=== PATIENT | female | born 1940 | race Caucasian/White ===

== ENCOUNTER 2019-11-10 16:11 | Outpatient (CLI) | payer MEDICARE, SELFPAY ==
[2019-11-10 16:36] LABS: Add Urine Microscopic? YES; Appearance Urine Clear (Clear); Bacteria Urine Trace /hpf; Bilirubin Urine Negative (Negative); Blood Urine 1+ (Negative); Color Urine Straw (Yellow); Glucose Urine UA Negative (Negative); Ketones Urine Negative (Negative); Leukocyte Esterase Ur 2+ LEU/UL (NEGATIVE); Mucus Urine Rare /lpf; Nitrate Urine Positive (Negative); Protein Urine Negative (Negative); RBC Urine 0-2 /hpf (0-2); Specific Grav Ur 1.009 (1.001-1.035); Squamous Epithelial Cell Urine Occasional /hpf (Few); Urobilinogen Urine Negative mg/dL (<2.0)
== END 2019-11-10 16:12 | disposition home or self-care (01) ==
PROVIDERS: PCP Physician Assistant; Visit Provider Physician Assistant
DX: R30.0 Dysuria (principal)
CPT/HCPCS: 81001; 87077; 87086; 87088; 87186

== ENCOUNTER 2020-01-14 09:48 | Outpatient (CLI) | payer MEDICARE, SELFPAY ==
--- NOTE | ~2020-01-14 | XR_ITS ---
XR lumbar spine 6V w bending 01/14/2020 10:18 Indication: Chronic low back pain Procedure: 8 views of the lumbar spine with flexion/extension Comparison: 01/28/2013 Findings: There is disc narrowing at all lumbar levels with progression of since prior examination at L2-3. There is retrolisthesis at L3-4 and L4-5. No acute fracture or traumatic malalignment. No evid ence for anterolisthesis. No significant alteration of alignment with flexion/extension. There is dex troscoliosis centered at L3 Impression: 1: Persistent moderate-severe lumbar spondylosis with progression at L2-3. If radiculopathy or myelop athy is present, further evaluation with MRI is recommended. Reviewed, dictated and finalized at location A. Impression: 1: Persistent moderate-severe lumbar spondylosis with progression at L2-3. If r adiculopathy or myelopathy is present, further evaluation with MRI is recommend ed.
== END 2020-01-14 09:49 | disposition home or self-care (01) ==
LOC: ANHIMG 09:51
PROVIDERS: PCP Physician Assistant; Visit Provider Physician Assistant
DX: M47.896 Other spondylosis, lumbar region (principal)
CPT/HCPCS: 72114

== ENCOUNTER 2020-03-03 16:49 | Emergency (ER) | payer MEDICARE, SELFPAY ==
--- NOTE | ~2020-03-03 | CT_ITS ---
EXAMINATION: CT abdomen pelvis wo con DATE: 03/03/2020 19:42 INDICATION: Abdominal pain. History of stones and recurrent urinary tract infections TECHNIQUE: Computed tomography (CT) of the abdomen and pelvis was performed without intravenous contr ast. Automated exposure control and iterative reconstruction technique were employed. Exam dose: 794 .16 mGy-cm total exam DLP. COMPARISON: 04/11/2019 CTA chest abdomen pelvis FINDINGS: There is mild discoid atelectasis or scarring in both lower lung zones. No consolidation. Coronary artery calcifications. Borderline heart size. No pericardial or pleural effusion. There is a small sliding hiatal hernia. There are numerous calcified splenic granulomas and occasional calcified hepatic granulomas. Normal s plenic size. No hepatic space-occupying mass lesion is evident. The gallbladder is absent. No bile duct or pancreatic duct dilatation. No pancreatic mass lesion. A s olitary pinpoint pancreatic head calcification is noted, which may indicate mild chronic pancreatitis . Normal morphology of the adrenal glands. Approximately 3 mm nonobstructing upper pole right renal calculus. No ureteral calculus or hydrourete ronephrosis. No apparent renal space-occupying mass lesion is detected. Normal caliber of the abdominal aorta. There is prominent calcification at the origins of the celiac and superior mesenteric and particularly both renal arteries. No abdominal aortic aneurysm. No intrap eritoneal or retroperitoneal or pelvic mass lesion or adenopathy or ascites. Status post hysterectomy. The urinary bladder is unremarkable. There is diverticulosis of the sigmoid and descending colon; no CT evidence of diverticulitis. No bow el obstruction is evident. There is a short segment area of soft tissue thickening and luminal narrowing of undetermined signifi cance at the very proximal descending colon; barium enema or colonoscopy is recommended to exclude ad enocarcinoma of the colon. There is reversal of lumbar lordosis. There is severe degenerative disc disease at L2-3, L3-4, L4-5 and L5-S1. There is associated mild ret rolisthesis at L4-5. Bilateral hip osteoarthritis. IMPRESSION: Small sliding hiatal hernia Approximately 3 mm nonobstructing lower pole right renal calculus Extensive atherosclerosis Status post hysterectomy Diverticulosis of sigmoid colon and descending colon Short segment possible soft tissue wall thickening and luminal narrowing of proximal descending colon ; recommend barium enema or colonoscopy to exclude adenocarcinoma the colon Reviewed, dictated and finalized at [facility]. Reviewed, dictated and finalized at location A. APPRAISER IMPRESSION: Small sliding hiatal hernia Approximately 3 mm nonobstructing lower pole right renal calculus Extensive atherosclerosis Status post hysterectomy Diverticulosis of sigmoid colon and descending colon Short segment possible soft tissue wall thickening and luminal narrowing of pro ximal descending colon; recommend barium enema or colonoscopy to exclude adenoc arcinoma the colon
[2020-03-03 18:04] VITALS: BP 139/90; PULSE 84; RESP 16; TEMP 36.3; O2SAT 98
[2020-03-03 18:23] LABS: Add Urine Microscopic? YES; Appearance Urine Clear (Clear); Bilirubin Urine Negative (Negative); Blood Urine 1+ (Negative); Color Urine Yellow (Yellow); Glucose Urine UA Negative (Negative); Ketones Urine Negative (Negative); Leukocyte Esterase Ur 2+ LEU/UL (Negative); Mucus Urine Rare /lpf; Nitrate Urine Negative (Negative); Protein Urine Negative (Negative); RBC Urine 0-2 /hpf (0-2); Specific Grav Ur 1.029 (1.001-1.035); Squamous Epithelial Cell Urine Few /hpf (Few); Urobilinogen Urine Negative mg/dL (<2.0)
[2020-03-03 20:03] LABS: Basophils Absolute Auto 0.1 K/mm3 (0.0-0.1); Basophils Percent Auto 0.9 % (0.2-1.2); Eosinophils Absolute Auto 0.2 K/mm3 (0-0.3); Eosinophils Percent Auto 3.1 % (0-4.4); Hematocrit 39.8 % (37.0-47.0); Hemoglobin 12.9 g/dL (12.0-15.0); Immature Granulocyte Absolute 0.01 K/mm3 (0.00-0.031); Immature Granulocyte Percent A 0.2 % (0-0.5); Lymphocytes Absolute Auto 1.43 K/mm3 (0.9-3.2); Lymphocytes Percent Auto 26.4 % (18.3-44.2); Mean Corpuscular HGB Conc 32.4 g/dl (32-36); Mean Corpuscular Hemoglobin 33.4 pg (26-34); Mean Corpuscular Volume 103.1 fl (80-100); Mean Platelet Volume 9.4 fl (7.4-10.4); Monocytes Absolute Auto 0.7 K/mm3 (0.1-0.6); Monocytes Percent Auto 12.8 % (2.6-8.5); Neutrophils Absolute Auto 3.1 K/mm3 (1.3-6.7); Neutrophils Percent Auto 56.6 % (45.5-73.1); Platelet Count Result 223 k/mm3 (150-375); Red Blood Count 3.86 M/mm3 (4.2-5.4); Red Cell Distribution Width 13.5 % (11.5-14.5); White Blood Count 5.4 K/mm3 (4.5-10.0)
[2020-03-03 20:26] LABS: Lactic Acid Reflex 0.9 mmol/L (0.7-2.1)
--- NOTE | 2020-03-03 20:27 | ED.GENADULT ---
HPI - General Adult General Chief complaint: Urogenital-Female Stated complaint: urgency to void, hematuria, itching Time Seen by Provider: 03/03/20 18:31 History of Present Illness HPI narrative: Patient is a 79-year-old female who presents to emergency department with chief complaint of abdominal pain and dysuria. Patient reports that she was recently treated for urinary tract infection Is still having symptoms. Patient states that she has prior history of UTIs that have been resistant but states that she is not getting better patient reports that she currently finished a course of antibiotics and still has dysuria she is reporting some perineal area Related Data Home Medications Medication Instructions Recorded Confirmed amlodipine 5 mg tablet 5 mg PO DAILY 02/20/19 01/18/20 aspirin 81 mg tablet,delayed 81 mg PO DAILY 02/27/19 01/18/20 release atorvastatin 10 mg tablet 10 mg PO DAILY 02/27/19 01/18/20 carvedilol 25 mg tablet 25 mg PO Q12H 02/27/19 01/18/20 losartan 100 mg tablet 100 mg PO DAILY tablet 02/27/19 01/18/20 Allergies Allergy/AdvReac Type Severity Reaction Status Date / Time codeine Allergy Severe CHEST PAIN Verified 03/03/20 18:09 Sulfa (Sulfonamide Allergy Severe UPSET Verified 03/03/20 18:09 Antibiotics) STOMACH JAYDEN Inhibitors Allergy Unknown Cough Verified 03/03/20 18:09 ciprofloxacin Allergy Unknown Unknown Verified 03/03/20 18:09 Review of Systems Review of Systems: Narrative: CONSTITUTIONAL: Denies fever, chills, or sweats. EYES: Denies visual changes, redness, or discharge. ENT: Denies rhinorrhea, congestion, sore throat, or otalgia. CARDIOVASCULAR: Denies chest pain, palpitations, or edema. RESPIRATORY: Denies cough or dyspnea. GASTROINTESTINAL: Denies abdominal pain, nausea, vomiting, or diarrhea. GENITOURINARY: Denies dysuria or hematuria. SKIN: Denies rash or itching. MUSCULOSKELETAL: Denies back pain, joint pain, or myalgia. NEUROLOGIC: Denies headache, numbness, or weakness. PSYCHIATRIC: Denies anxiety or depression. All systems reviewed & are unremarkable except as noted in HPI and below PMFSH Past Medical History Medical History (Updated 03/03/20 @ 20:55 by Julio Pretty MD) Afib Intermittent. Rate controlled. Had been on Coumadin. But now on Lovenox systolic Anxiety CHF (congestive heart failure), NYHA class I CKD (chronic kidney disease) Coronary artery disease Depression GERD (gastroesophageal reflux disease) HTN (hypertension) Hyperlipidemia Hypothyroid Kidney stones Surgical History Surgical History H/O cardiac catheterization 3 stents History of appendectomy History of bilateral tubal ligation History of cholecystectomy History of heart artery stent 3 History of hysterectomy Family History Family History Father Family history of cardiovascular disease CABG Carcinoma of colon Mother Family history of malignant neoplasm Aplastic anemia Other Family history of anemia Family history of arthritis Hypertension Social History Social History Smoking status: Never smoker Second hand tobacco smoke exposure: No Alcohol intake: never Substance use: never Substance use type: does not use Gender identity (if verbalized by the patient): Female Spiritual care concerns: No Agree to blood products: Yes Exam Narrative: Exam Narrative: GENERAL: Well-appearing, well-nourished, and in no acute distress. HEAD: Normocephalic, atraumatic. EYES: PERRLA and EOMI. ENT: Nares clear, no rhinorrhea or epistaxis. Mucous membranes moist. NECK: Supple. CHEST: Clear to auscultation. No respiratory distress. HEART: Regular rate and rhythm. No murmur heard. Normal peripheral pulses. ABDOMEN: Soft, nontender, nondistended, normal active bowel sounds. EXT
[2020-03-03 20:47] LABS: Alanine Aminotransferase 20 U/L (4-35); Albumin Level 3.8 g/dL (3.5-5.1); Alkaline Phosphatase 114 U/L (38-126); Anion Gap 7 mmol/L (8-16); Aspartate Amino Transferase 31 U/L (14-36); Bilirubin,Total 0.7 mg/dL (0.2-1.3); Blood Urea Nitrogen 16 mg/dL (7-17); Calcium 8.6 mg/dL (8.4-10.2); Carbon Dioxide 28 mmol/L (22-30); Chloride 105 mmol/L (98-107); Estimated CRCL calculation 44 ml/min; Estimated Glomerular Filt Rate 54; Glucose 100 mg/dL (65-105); Lipase 112 U/L (23-300); Sodium 140 mmol/L (137-145)
[2020-03-03] MEDS: AMOXICILLIN/CLAVULANATE K 875-125 MG TAB 1 TABLET PO (21:05)
[2020-03-03] MEDS: PHENAZOPYRIDINE HCL 100 MG TABLET 200 MG PO (21:05)
== END 2020-03-03 21:16 | disposition home or self-care (01) ==
PROVIDERS: Emergency Medicine; Emergency Provider Emergency Medicine; PCP Physician Assistant
DX: N39.0 Urinary tract infection, site not specified (principal); I48.91 Unspecified atrial fibrillation; I50.9 Heart failure, unspecified; I12.9 Hypertensive chronic kidney disease with stage 1 through stage 4 chronic kidney disease, or unspecified chronic kidney disease; N18.9 Chronic kidney disease, unspecified; K21.9 Gastro-esophageal reflux disease without esophagitis; E03.9 Hypothyroidism, unspecified; Z87.442 Personal history of urinary calculi; Z95.5 Presence of coronary angioplasty implant and graft; Z79.82 Long term (current) use of aspirin; Z79.02 Long term (current) use of antithrombotics/antiplatelets
CPT/HCPCS: 36415; 74176; 80053; 81001; 83605; 83690; 85025; 87086; 99284; A9270

== ENCOUNTER 2020-08-17 18:07 | Observation (INO) | payer MEDICARE, SELFPAY ==
--- NOTE | ~2020-08-17 | XR_ITS ---
EXAMINATION: XR chest 1V portable EXAM DATE: 08/18/2020 08:55 INDICATION: Chest pain . TECHNIQUE: Portable AP frontal chest x-ray was obtained. Comparison is made to prior examination from 04/12/2019. FINDINGS: The lungs are clear. There are no pleural effusions. Cardiac silhouette is prominent but magnified on this AP technique. There is no pneumothorax suspected. The bones and soft tissues are unremarkable. IMPRESSION: No acute cardiopulmonary findings. Reviewed, dictated and finalized at location A.
--- NOTE | ~2020-08-17 | CT_ITS ---
EXAMINATION: CT abdomen pelvis w con DATE: 08/18/2020 00:27 INDICATION: Abdominal pain. TECHNIQUE: Computed tomography (CT) of the abdomen and pelvis was performed with 100 mL Omnipaque 350 intravenous contrast. Automated exposure control and iterative reconstruction technique were employe d. The dose-length product was 1080.96 mGy-cm. COMPARISON: CT abdomen and pelvis 03/03/2020 FINDINGS: The visualized portions of the lung bases demonstrate mild atelectasis. No pleural effusion . Cardiomegaly is noted. There are coronary artery calcifications. No pericardial effusion. Calcifica tions in the liver and spleen are consistent with old granulomatous disease. The pancreas and adrenal glands are normal. There is cortical thinning of the kidneys. There is a 2 mm stone in right kidney. There are cysts in the kidneys measuring up to 11 mm on the left. There is diverticulosis of the col on without evidence of diverticulitis. The appendix is not visualized. There are no pathologically en larged lymph nodes. There is no free intraperitoneal fluid. There are old healed fractures of left wolfe perior and inferior pubic rami. There is an intrathecal pump. There is severe lumbar spondylosis. IMPRESSION: 1. No specific etiology for the patient's symptoms. Reviewed, dictated and finalized at location A.
--- NOTE | ~2020-08-17 | US_ITS ---
EXAMINATION: US pelvic complete DATE: 08/19/2020 11:44 INDICATION: Pelvic pain. TECHNIQUE: Multiple transabdominal sonographic images of the pelvis were obtained. COMPARISON: CT abdomen and pelvis 08/18/2020 FINDINGS: The uterus and ovaries are absent. The bladder is normal. IMPRESSION: 1. Normal bladder. 2. Absent uterus and ovaries. Reviewed, dictated and finalized at location A.
[2020-08-17 19:06] VITALS: BP 115/62; PULSE 60; RESP 16; TEMP 36.1; O2SAT 96
--- NOTE | 2020-08-17 19:10 | ECG_ITS ---
Measurements Intervals [place] Rate: 90 P: [place]: 0 QRS: 54 QRSD: 96 T: -15 QT: 375 QTc: 460 Interpretive Statements ATRIAL FIBRILLATION INCOMPLETE RIGHT BUNDLE BRANCH BLOCK NONSPECIFIC ST & T-WAVE ABNORMALITY- ANTEROLAT/INF LEADS ABNORMAL ECG Electronically Signed On 08-18-2020 7:10:01 CDT by Bakari Gonzalez D.O.
[2020-08-17 19:29] LABS: Basophils Absolute Auto 0.1 K/mm3 (0.0-0.1); Basophils Percent Auto 0.9 % (0.2-1.2); Eosinophils Absolute Auto 0.1 K/mm3 (0-0.3); Eosinophils Percent Auto 1.1 % (0-4.4); Hematocrit 40.6 % (37.0-47.0); Hemoglobin 13.4 g/dL (12.0-15.0); Immature Granulocyte Absolute 0.01 K/mm3 (0.00-0.031); Immature Granulocyte Percent A 0.2 % (0-0.5); Lymphocytes Absolute Auto 1.34 K/mm3 (0.9-3.2); Lymphocytes Percent Auto 25.4 % (18.3-44.2); Mean Corpuscular Hemoglobin 33.5 pg (26-34); Mean Corpuscular Volume 101.5 fl (80-100); Mean Platelet Volume 9.9 fl (7.4-10.4); Monocytes Absolute Auto 0.5 K/mm3 (0.1-0.6); Monocytes Percent Auto 8.9 % (2.6-8.5); Neutrophils Absolute Auto 3.4 K/mm3 (1.3-6.7); Neutrophils Percent Auto 63.5 % (45.5-73.1); Platelet Count Result 242 k/mm3 (150-375); Red Cell Distribution Width 12.7 % (11.5-14.5); White Blood Count 5.3 K/mm3 (4.5-10.0)
[2020-08-17 19:41] LABS: Alanine Aminotransferase 11 U/L (4-35); Alkaline Phosphatase 100 U/L (38-126); Anion Gap 5 mmol/L (8-16); Aspartate Amino Transferase 26 U/L (14-36); Bilirubin,Total 0.4 mg/dL (0.2-1.3); Blood Urea Nitrogen 13 mg/dL (7-17); Calcium 8.7 mg/dL (8.4-10.2); Carbon Dioxide 27 mmol/L (22-30); Chloride 105 mmol/L (98-107); Estimated CRCL calculation 54 ml/min; Estimated Glomerular Filt Rate > 60; Glucose 161 mg/dL (65-105); Lipase 111 U/L (23-300); Sodium 137 mmol/L (137-145)
--- NOTE | 2020-08-17 22:46 | ED.ABDPAIN ---
HPI - Abdominal Pain General Chief Complaint: Abdominal Pain Stated Complaint: urinary symptoms, abd pain Time Seen by Provider: 08/17/20 22:40 Source: patient and RN notes reviewed Mode of arrival: ambulatory Limitations: no limitations History of Present Illness HPI narrative: Patient is 80 years old white female came from home with her daughter complaining of diffuse abdominal pain for the last 2 months. Recurrent urinary tract infection for at least 4 times over the last 6 months, last course of antibiotic intake was 5 days ago. Or urinary Currently patient complaining of nausea, no vomiting, also complaining of diarrhea for the last 2 days, today was watery stool at least 7 episodes. Patient was seen in the last few days at [facility] and was discharged on nitrofurantoin, morphine and Zofran patient was seen by A urologist 1 month ago. Related Data Home Medications Medication Instructions Recorded Confirmed amlodipine 5 mg tablet 5 mg PO DAILY 02/20/19 05/20/20 aspirin 81 mg tablet,delayed 81 mg PO DAILY 02/27/19 05/20/20 release atorvastatin 10 mg tablet 10 mg PO DAILY 02/27/19 05/20/20 carvedilol 25 mg tablet 25 mg PO Q12H 02/27/19 05/20/20 Allergies Allergy/AdvReac Type Severity Reaction Status Date / Time codeine Allergy Severe CHEST PAIN Verified 05/20/20 08:56 Sulfa (Sulfonamide Allergy Severe UPSET Verified 05/20/20 08:56 Antibiotics) STOMACH JAYDEN Inhibitors Allergy Unknown Cough Verified 05/20/20 08:56 ciprofloxacin Allergy Unknown Unknown Verified 05/20/20 08:56 Review of Systems Review of Systems: Narrative: CONSTITUTIONAL: Denies fever, chills, or sweats. EYES: Denies visual changes, redness, or discharge. ENT: Denies rhinorrhea, congestion, sore throat, or otalgia. CARDIOVASCULAR: Denies chest pain, palpitations, or edema. RESPIRATORY: Denies cough or dyspnea. GASTROINTESTINAL: Abdominal pain, nausea and diarrhea GENITOURINARY: Denies dysuria or hematuria. SKIN: Denies rash or itching. MUSCULOSKELETAL: Denies back pain, joint pain, or myalgia. NEUROLOGIC: Denies headache, numbness, or weakness. PSYCHIATRIC: Denies anxiety or depression. [facility] Past Medical History Medical History Afib Intermittent. Rate controlled. Had been on Coumadin. But now on Lovenox systolic Anxiety CHF (congestive heart failure), NYHA class I CKD (chronic kidney disease) Coronary artery disease Depression GERD (gastroesophageal reflux disease) HTN (hypertension) Hyperlipidemia Hypothyroid Kidney stones Surgical History Surgical History H/O cardiac catheterization 3 stents History of appendectomy History of bilateral tubal ligation History of cholecystectomy History of heart artery stent 3 History of hysterectomy Family History Family History Father Family history of cardiovascular disease CABG Carcinoma of colon Mother Family history of malignant neoplasm Aplastic anemia Other Family history of anemia Family history of arthritis Hypertension Social History Social History Smoking status: Never smoker Second hand tobacco smoke exposure: No Alcohol intake: never Substance use: never Substance use type: does not use Gender identity (if verbalized by the patient): Female Spiritual care concerns: No Agree to blood products: Yes Exam Narrative: Exam Narrative: General appearance: Well-developed, well-nourished, ill looking, daughter at the bedside Skin: Normal color Head: Normocephalic, nontraumatic Eyes: Clear conjunctiva ENT: Oropharynx normal, ears normal, nose normal Neck: Supple, nontender Chest and respiratory: Airway patent, no respiratory distress, no accessory muscle use Heart: Regular rate/rhythm Abdomen: Soft, diffuse tenderness, hyperact
--- NOTE | 2020-08-17 23:19 | ED.ABDPAIN ---
HPI - Abdominal Pain General Chief Complaint: Abdominal Pain Stated Complaint: urinary symptoms, abd pain Time Seen by Provider: 08/17/20 22:40 Source: patient and RN notes reviewed Mode of arrival: ambulatory Limitations: no limitations History of Present Illness HPI narrative: Patient is a 80-year-old female complaining of abdominal pain, generalized, 6 out of 10, dull, nonradiating started approximately 2 weeks ago accompanied by diarrhea described as loose watery. Patient states that she has been on 3 rounds of antibiotics due to her urinary tract infection. Patient also complaining of chest pain, tightness, substernal radiating also started proximately 2 weeks ago. Patient denies any shortness of breath, nausea, vomiting, fever or chills. Related Data Home Medications Medication Instructions Recorded Confirmed amlodipine 5 mg tablet 5 mg PO DAILY 02/20/19 05/20/20 aspirin 81 mg tablet,delayed 81 mg PO DAILY 02/27/19 05/20/20 release atorvastatin 10 mg tablet 10 mg PO DAILY 02/27/19 05/20/20 carvedilol 25 mg tablet 25 mg PO Q12H 02/27/19 05/20/20 Allergies Allergy/AdvReac Type Severity Reaction Status Date / Time codeine Allergy Severe CHEST PAIN Verified 05/20/20 08:56 Sulfa (Sulfonamide Allergy Severe UPSET Verified 05/20/20 08:56 Antibiotics) STOMACH JAYDEN Inhibitors Allergy Unknown Cough Verified 05/20/20 08:56 ciprofloxacin Allergy Unknown Unknown Verified 05/20/20 08:56 Review of Systems Review of Systems: All systems reviewed & are unremarkable except as noted in HPI and below Constitutional: Constitutional: Denies body ache(s), Denies chills, Denies excessive sweating, Denies fatigue, Denies fever(s), Denies headache(s), Denies lethargy, Denies malaise, Denies weakness and Denies weight loss Eyes: Eyes: Denies blurry vision, Denies change in vision and Denies loss of vision ENT: Denies dizziness, Denies ear discharge, Denies headache(s), Denies lip swelling, Denies epistaxis, Denies nasal congestion, Denies neck pain, Denies throat swelling and Denies tongue swelling Cardiovascular: Cardiovascular: Denies diaphoresis, Denies rapid heart rate, Denies edema, Denies irregular heart rhythm, Denies lightheadedness, Denies palpitations, Denies dyspnea and Denies dyspnea on exertion Respiratory: Respiratory: Denies chest congestion, Denies cough, Denies hemoptysis, Denies dyspnea and Denies dyspnea on exertion Gastrointestinal: Gastrointestinal: Denies melena, Denies hematochezia, Denies nausea, Denies vomiting and Denies hematemesis Musculoskeletal: Musculoskeletal: Denies abnormal gait, Denies deformity, Denies joint swelling, Denies limited range of motion, Denies neck pain and Denies numbness Neurologic: Denies Abnormal speech present, Denies abnormal gait, Denies confusion, Denies dizziness, Denies headache(s), Denies focal weakness, Denies loss of vision, Denies numbness, Denies Other visual disturbances, Denies Sensory deficit (Neuro) and Denies weakness Psychiatric: Psychiatric: Denies confusion, Denies depression, Denies auditory hallucinations, Denies homicidal ideation and Denies suicidal ideation Endocrine: Endocrine: Denies cold intolerance, Denies excessive sweating, Denies fatigue, Denies heat intolerance and Denies palpitations Hematologic/Lymphatic: Hematologic/Lymphatic: Denies easy bleeding and Denies easy bruising Allergic/Immunologic: Allergic/Immunologic: Denies lip swelling, Denies throat swelling and Denies tongue swelling PMFSH Past Medical History Medical History Afib Intermittent. Rate controlled. Had been on Coumadin. But now on Lovenox systolic Anxiety CHF (congestive heart failure), NYHA class I CKD (chronic kidney disease) Coronary artery disease Depression GERD (gastroesophageal reflux disease) HTN (hypertension) Hyperlipidemia Hypothyroid Kidney stones Surgical History Surgical History (Reviewed 08/17/20 @ 23:22 by
[2020-08-17 23:35] VITALS: PULSE 80; RESP 9; O2SAT 96
--- NOTE | 2020-08-17 23:41 | PC.NURSE ---
Pt c/o pain in lower abd that is burning in nature. pt reports diarrhea x 2 days, 6 episodes of watery stool today. last meal ate pizza today with no improvement. hx of perforated abd ulcer per pt report 2 years ago without follow up. pain 01/29.
[2020-08-17 23:45] VITALS: PULSE 81; RESP 12; O2SAT 99
[2020-08-17 23:47] VITALS: PULSE 83; RESP 20; O2SAT 98
[2020-08-18] VITALS (34 sets, daily range): BP systolic 132–185; BP diastolic 62–93; PULSE 63–87; RESP 9–22; TEMP 35.8–36.4; O2SAT 83–100; BMI 29.2
--- NOTE | 2020-08-18 | ECHO_ITS ---
Patient Info Name: So Jenkins Age: 80 years : 1940 Gender: Female Ht: 66 in Wt: 180 lbs BSA: 1.97 m2 HR: 79 bpm BP: 185 / 91 mmHg Heart Rhythm: Atrial Fibrillation Technical Quality: Fair Exam Date: 08/18/2020 10:26 AM Exam Location: [facility] Card Pulmonary Patient Status: Inpatient Admit Date: 08/18/2020 Staff Ordering Physician: Samantha England NP Medical Leader: Montse Marte RDCS Attending Provider: Carol Ann Monaco MD Referring Physician: Tomás LIN; Exam Type: CA echo dop color flow w con Study Info Indications R07.9 - Chest pain, unspecified Complete two-dimensional, color flow and Doppler transthoracic echocardiogram is performed with contrast to opacify the left ventricle and to improve the deliniation of the left ventricle endocardial borders. Contrast/Agitated Saline Contrast/Ag. Saline: Definity Amount: 2.00 ml Administered By: Estela Bee RN Existing IV Access: Yes IV Access Condition: patent with no signs of infiltration Summary 1. Technically difficult study with limited views. No clear wall motion abnormalities identified, however, regional wall motion assessment limited despite definity contrast enhancement. 2. Left ventricular systolic function is normal, estimated at 55-60%. 3. Left ventricular chamber dimension is normal. 4. Left atrial chamber dimension is mildly enlarged. 5. Right atrial chamber dimension is mildly enlarged. 6. There is no aortic valve stenosis. 7. There is trace mitral valve regurgitation. 8. There is mild tricuspid valve regurgitation. 9. Moderate pulmonary hypertension, estimated pulmonary arterial systolic pressure is 53 mmHg. Left Ventricle Left ventricular chamber dimension is normal. Left ventricular systolic function is normal, estimated at 55-60%. There is no increased left ventricular wall thickness. The left ventricular diastolic function is indeterminate. Technically difficult study with limited views. No clear wall motion abnormalities identified, however, regional wall motion assessment limited despite definity contrast enhancement. Right Ventricle Right ventricular chamber dimension is not well visualized. Right ventricular systolic function is normal. Left Atria Left atrial chamber dimension is mildly enlarged. Right Atria Right atrial chamber dimension is mildly enlarged. Aortic Valve The aortic valve is trileaflet. There is no aortic valve stenosis. There is no aortic valve regurgitation. Pulmonic Valve The pulmonic valve is normal. There is trace pulmonic regurgitation. Mitral Valve The mitral valve has normal leaflets. There is trace mitral valve regurgitation. Tricuspid Valve The tricuspid valve leaflets are normal. There is mild tricuspid valve regurgitation. Moderate pulmonary hypertension, estimated pulmonary arterial systolic pressure is 53 mmHg. Pericardium/Pleural The pericardium appears epicardial fat pad. Inferior Vena Cava Inferior vena cava is not well visualized. Aorta The aortic root size at the sinus of Valsalva is normal. Left Ventricular Outflow Tract Name Value Normal LVOT 2D LVOT Diameter 1.91 cm
[2020-08-18] MEDS: SODIUM CHLORIDE 0.9% IV 1,000 ML 999 ML IV CONT (00:01)
[2020-08-18] MEDS: MORPHINE SULFATE (*CRX) 4 MG/ML INJ IV PUSH (00:01)
[2020-08-18] MEDS: ONDANSETRON INJ 4 MG/2 ML VIAL IV PUSH (00:02)
[2020-08-18 01:58] LABS: Add Urine Microscopic? YES; Appearance Urine Clear (Clear); Bilirubin Urine Negative (Negative); Blood Urine 1+ (Negative); Color Urine Straw (Yellow); Glucose Urine UA Negative (Negative); Ketones Urine Negative (Negative); Leukocyte Esterase Ur Negative LEU/UL (Negative); Nitrate Urine Negative (Negative); Protein Urine Negative (Negative); RBC Urine 0-2 /hpf (0-2); Squamous Epithelial Cell Urine Rare /hpf (Few); Urobilinogen Urine Negative mg/dL (<2.0); WBC Urine 0-3 /hpf
[2020-08-18 02:02] LABS: Specific Grav Ur 1.038 (1.001-1.035)
[2020-08-18 02:24] LABS: Troponin I < 0.012 ng/mL (0.000-0.034)
[2020-08-18] MEDS: ASPIRIN 81 MG CHEWABLE TABLET 324 MG PO (03:15)
[2020-08-18] MEDS: MORPHINE SULFATE (*CRX) 2 MG/ML INJ IV PUSH (03:15)
--- NOTE | 2020-08-18 04:35 | ADMGEN ---
This patient, So Jenkins, was admitted to IMU Room 206-01. Patient/family oriented to hospital policies and general routines including ID bracelet, bed and alarms, visiting hours, pain management, procedures, bathroom and other care routines, personal items, smoking policy, room service/diet, and visiting hours. Information on how to activate the Rapid Response Team has been discussed. Patient/Family are encouraged to report perceived risks to care and to ask questions if they do not understand what they are told or what they should do.
[2020-08-18] MEDS: LACTATED RINGERS 1,000 ML 90 ML IV CONT (05:34)
[2020-08-18 05:48] LABS: INR 1.6; Prothrombin Time 19.6 Seconds (11.1-14.7)
[2020-08-18 05:54] LABS: Troponin I < 0.012 ng/mL (0.000-0.034)
--- NOTE | 2020-08-18 06:37 | PM.IMHP ---
H&P: HPI History of Present Illness Date/Time: 08/18/20 06:37 this is a 80-year-old female patient who has had multiple rounds of antibiotics for urinary tract infection. The patient stated she completed her last dose of antibiotics and is complaining of some lower abdominal pain she has some lower abdominal tenderness. She did have diarrhea for several days but seems to be resolving. The patient also complained of some midsternal chest pain which is reproducible. Troponins are negative x2. The patient has a history of atrial fibrillation and her EKG does show atrial fibrillation.Heart rate in the 90s. She does have a history of having chronic lower back pain and history of coronary artery disease. She sees Dr. Khan. The patient was started on IV fluids, Zofran, and morphine. The patient stated that the morphine barely touched her pain. She has the sternal pain which is reproducible. She tells me that she hurts from her chest all the way down to the top of her thighs. No burning when she urinates. CT of the abdomen was essentially negative. Her INR is 1.6. The patient did not have a CT a pulmonary a she was not short of breath or tachycardic. I had this discussion with the ER doctor who stated that the patient does not appear to have a PE. However I did give her doses subcu Lovenox and increased 3rd Coumadin. The patient denies any nausea vomiting and states that the diarrhea is getting better. She did not notice any blood in her stool. A chest x-ray as well. Patient is being admitted for observation on date of service of 08/18/2020. Chief Complaint: Chest pain Review of Systems Review of Systems: All systems reviewed & are unremarkable except as noted in HPI and below Constitutional: Constitutional: Reports as per HPI and Reports no additional constitutional complaints Eyes: Eyes: Reports as per HPI and Reports no additional eye complaints ENT: Reports system reviewed and no additional complaints, except as documented and Reports Normal hearing present Cardiovascular: Cardiovascular: Reports no additional cardiovascular complaints Respiratory: Respiratory: Reports no additional respiratory complaints and Reports no additional respiratory complaints Gastrointestinal: Gastrointestinal: Reports as per HPI and Reports no additional gastrointestinal complaints Musculoskeletal: Musculoskeletal: Reports no additional musculoskeletal complaints Integumentary/Breasts: Skin/Breast: Reports system reviewed and no additional complaints, except as docu and Reports as per HPI Neurologic: Reports system reviewed and no additional complaints, except as documented, Reports as per HPI and Reports Normal hearing present Psychiatric: Psychiatric: Reports no additional psychiatric complaints and Reports as per HPI Endocrine: Endocrine: Reports no additional endocrine complaints Hematologic/Lymphatic: Hematologic/Lymphatic: Reports no additional hematologic/lymphatic complaints Allergic/Immunologic: Allergic/Immunologic: Reports no additional allergic/immunologic complaints [facility] Past Medical History Medical History (Updated 08/18/20 @ 06:48 by Samantha England NP) Afib Intermittent. Rate controlled. Had been on Coumadin. But now on Lovenox systolic Anxiety CHF (congestive heart failure), NYHA class I CKD (chronic kidney disease) Coronary artery disease Depression GERD (gastroesophageal reflux disease) HTN (hypertension) Hyperlipidemia Hypothyroid Kidney stones Surgical History Surgical History H/O cardiac catheterization 3 stents History of appendectomy History of bilateral tubal ligation History of cholecystectomy History of heart artery stent 3 History of hysterectomy Family History Family History Father Family history of cardiovascular disease CABG Carcinoma of colon Mother Family history of ma
[2020-08-18] MEDS: ENOXAPARIN 80 MG/0.8 ML SYRINGE SUB-Q (06:53)
[2020-08-18 07:09] LABS: Basophils Absolute Auto 0.1 K/mm3 (0.0-0.1); Basophils Percent Auto 0.8 % (0.2-1.2); Eosinophils Absolute Auto 0.1 K/mm3 (0-0.3); Eosinophils Percent Auto 1.3 % (0-4.4); Hematocrit 40.5 % (37.0-47.0); Immature Granulocyte Absolute 0.01 K/mm3 (0.00-0.031); Immature Granulocyte Percent A 0.2 % (0-0.5); Lymphocytes Absolute Auto 2.04 K/mm3 (0.9-3.2); Lymphocytes Percent Auto 33.8 % (18.3-44.2); Mean Corpuscular HGB Conc 32.1 g/dl (32-36); Mean Corpuscular Hemoglobin 33.5 pg (26-34); Mean Corpuscular Volume 104.4 fl (80-100); Mean Platelet Volume 10.3 fl (7.4-10.4); Monocytes Absolute Auto 0.6 K/mm3 (0.1-0.6); Monocytes Percent Auto 9.5 % (2.6-8.5); Neutrophils Absolute Auto 3.3 K/mm3 (1.3-6.7); Neutrophils Percent Auto 54.4 % (45.5-73.1); Platelet Count Result 242 k/mm3 (150-375); Red Blood Count 3.88 M/mm3 (4.2-5.4)
[2020-08-18 07:40] LABS: Alanine Aminotransferase 11 U/L (4-35); Albumin Level 3.7 g/dL (3.5-5.1); Alkaline Phosphatase 101 U/L (38-126); Anion Gap 6 mmol/L (8-16); Aspartate Amino Transferase 26 U/L (14-36); Bilirubin,Total 0.3 mg/dL (0.2-1.3); Blood Urea Nitrogen 11 mg/dL (7-17); Calcium 8.3 mg/dL (8.4-10.2); Carbon Dioxide 29 mmol/L (22-30); Chloride 103 mmol/L (98-107); Estimated CRCL calculation 54 ml/min; Estimated Glomerular Filt Rate > 60; Glucose 107 mg/dL (65-105); Lipase 212 U/L (23-300); Magnesium 1.9 mg/dL (1.6-2.3); Potassium 3.4 mmol/L (3.4-5.0); Sodium 138 mmol/L (137-145)
[2020-08-18] MEDS: FAMOTIDINE 20 MG/2 ML VIAL IV PUSH ×2 (08:13→20:58)
[2020-08-18] MEDS: ASPIRIN 81 MG ENTERIC TABLET PO (08:13)
[2020-08-18] MEDS: DICYCLOMINE HCL 10 MG CAPSULE 20 MG PO ×2 (08:13→20:56)
[2020-08-18] MEDS: LOSARTAN POTASSIUM 50 MG TABLET PO (08:13)
[2020-08-18 08:48] LABS: INR 1.7; Prothrombin Time 20.6 Seconds (11.1-14.7)
[2020-08-18 09:01] LABS: Troponin I < 0.012 ng/mL (0.000-0.034)
[2020-08-18] MEDS: PERFLUTREN LIPID MICROSPHERES 1.5 ML VIAL DILUTED TO 10 ML TOTAL VOLUME IV PUSH (10:59)
--- NOTE | 2020-08-18 12:15 | PM.IMPN ---
Progress Note: A&P Assessment and Plan (1) Chest pain: Code(s): R07.9 - Chest pain, unspecified Status: Acute Assessment and Plan: The patient does have a history of having 3 cardiac stents in the past. The patient was complaining of midsternal chest pain. Her cardiac enzymes are negative x2 so far. I did order chest base. Patient could possibly have a pulmonary emboli. However she is not tachypneic or tachycardic. The patient is subtherapeutic on her Coumadin she was 1.6 the patient subcu Lovenox 1 time and increase her Coumadin. Patient has reproducible chest pain. She has seen Dr. alvarado in the past. I did order another echo since she has not had 1 in over a year. The patient stated she heard from her rest bone all the way down to her upper thighs. The patient recently had diarrhea and is complaining of lower abdominal pain. The patient also has a history of having chronic back pain. This could possibly be radiculopathy from her lumbar spine as well. Patient has a pain pump that is nonfunctioning. The patient stated that morphine did not help her pain much. I placed the patient back on her schedule morphine. She was also requesting Vicodin but I feel that this is too many narcotics at this time. I ordered Bentyl for her abdominal discomfort. Her CT scan did not offer up any diagnosis. Please review chest x-ray of I have just ordered it. May also considered CT a pulmonary. May also consider this could be peptic ulcer disease as well. I gave her IV Pepcid. 08/18/20 12:15 patient is 80-year-old female with history of coronary artery disease presented with complaint of chest patient 3 sets of cardiac enzymes are negative and there is no acute changes on her EKG patient does have a history of atrial fibrillation the rate is controlled, we ordered cardiac echo to further evaluate and further recommendation to follow, patient also has history recurrent UTI for last 6 months and has been treated antibiotic patient just finished his last course of antibiotic and developed dysuria frequency urination low abdominal pain, urine essentially clean without any leukourea or nitrite, for her persistent pelvic pain will order pelvic ultrasound for further recommendation, continue present management and monitor will have PT OT evaluate the patient (2) Anxiety: Code(s): F41.9 - Anxiety disorder, unspecified Status: Chronic Assessment and Plan: Continue with patient's lorazepam. (3) Depression: Code(s): F32.9 - Major depressive disorder, single episode, unspecified Status: Chronic Assessment and Plan: Continue with patient's home medications. Do not see any medication for depression at this time. (4) Hyperlipidemia: Code(s): E78.5 - Hyperlipidemia, unspecified Status: Chronic Assessment and Plan: Continue with home medications do not see anything for cholesterol (5) Hypothyroid: Code(s): E03.9 - Hypothyroidism, unspecified Status: Chronic Assessment and Plan: Check thyroid level. Patient does not appear to be on any medications (6) HTN (hypertension): Code(s): I10 - Essential (primary) hypertension Status: Acute Assessment and Plan: Continue with losartan. (7) CKD (chronic kidney disease): Code(s): N18.9 - Chronic kidney disease, unspecified Status: Chronic Assessment and Plan: Continue to monitor. Patient is at baseline. (8) CHF (congestive heart failure), NYHA class I: Qualifiers: Congestive heart failure type: diastolic Congestive heart failure chronicity: chronic Qualified Code(s): I50.32 - Chronic diastolic (congestive) heart failure Code(s): I50.9 - Heart failure, unspecified Status: Chronic Assessment and Plan: I did order another echo was she has not had 1 since 2019. The patient is allergic to JAYDEN inhibitors which she notes gave her cough. Continue with jayce
[2020-08-18] MEDS: MORPHINE SULFATE (*CRX) 15 MG TAB IR PO ×2 (12:19→20:56)
[2020-08-18 12:20] LABS: Free T4 Free Thyroxine Reflex 1.14 ng/dL (0.78-2.19)
--- NOTE | 2020-08-18 16:41 | PC.NURSE ---
This patient, So Jenkins, was received from [ [facility] ] on 08/18/20 at 1641. Patient/family oriented to unit policies and routines
--- NOTE | 2020-08-18 16:45 | PC.NURSE ---
This patient, So Jenkins, was transferred to [[facility] ] on 08/18/20 at 1635. Personal belongings sent with patient. Report given to [MISAEL Pace @ [phone]]. Appropriate documentation sent with patient.
[2020-08-18] MEDS: WARFARIN (*PBKC) 4 MG TABLET PO (17:25)
[2020-08-18 21:10] LABS: Total Triiodothyronine (T3) 1.22 NG/ML (0.97-1.69)
[2020-08-19] VITALS (9 sets, daily range): BP systolic 128–163; BP diastolic 71–81; PULSE 59–90; RESP 16; TEMP 35.7–36.1; O2SAT 95–97
[2020-08-19] MEDS: MORPHINE SULFATE (*CRX) 15 MG TAB IR PO ×3 (03:45→23:30)
[2020-08-19] MEDS: DICYCLOMINE HCL 10 MG CAPSULE 20 MG PO ×3 (03:46→23:30)
[2020-08-19 05:54] LABS: Hematocrit 35.8 % (37.0-47.0); Hemoglobin 11.5 g/dL (12.0-15.0); Mean Corpuscular HGB Conc 32.1 g/dl (32-36); Mean Corpuscular Hemoglobin 33.7 pg (26-34); Mean Platelet Volume 9.7 fl (7.4-10.4); Platelet Count Result 196 k/mm3 (150-375); Red Blood Count 3.41 M/mm3 (4.2-5.4); Red Cell Distribution Width 12.6 % (11.5-14.5); White Blood Count 4.9 K/mm3 (4.5-10.0)
[2020-08-19 06:03] LABS: Anion Gap 0 mmol/L (8-16); Blood Urea Nitrogen 7 mg/dL (7-17); Calcium 7.9 mg/dL (8.4-10.2); Carbon Dioxide 31 mmol/L (22-30); Chloride 104 mmol/L (98-107); Estimated CRCL calculation 55 ml/min; Estimated Glomerular Filt Rate > 60; Glucose 90 mg/dL (65-105); Potassium 3.9 mmol/L (3.4-5.0); Sodium 135 mmol/L (137-145)
[2020-08-19 06:41] LABS: INR 1.7; Prothrombin Time 20.8 Seconds (11.1-14.7)
[2020-08-19] MEDS: ASPIRIN 81 MG ENTERIC TABLET PO (08:48)
[2020-08-19] MEDS: LOSARTAN POTASSIUM 50 MG TABLET PO (08:48)
[2020-08-19] MEDS: FAMOTIDINE 20 MG/2 ML VIAL IV PUSH ×2 (08:48→20:09)
--- NOTE | 2020-08-19 12:34 | PM.IMPN ---
Progress Note: A&P Assessment and Plan (1) Chest pain: Code(s): R07.9 - Chest pain, unspecified Status: Acute Assessment and Plan: 08/19/20 12:34 The patient does have a history of having 3 cardiac stents in the past. The patient was complaining of midsternal chest pain. Her cardiac enzymes are negative x2 so far. I did order chest base. Patient could possibly have a pulmonary emboli. However she is not tachypneic or tachycardic. The patient is subtherapeutic on her Coumadin she was 1.6 the patient subcu Lovenox 1 time and increase her Coumadin. Patient has reproducible chest pain. She has seen Dr. alvarado in the past. I did order another echo since she has not had 1 in over a year. The patient stated she heard from her rest bone all the way down to her upper thighs. The patient recently had diarrhea and is complaining of lower abdominal pain. The patient also has a history of having chronic back pain. This could possibly be radiculopathy from her lumbar spine as well. Patient has a pain pump that is nonfunctioning. The patient stated that morphine did not help her pain much. I placed the patient back on her schedule morphine. She was also requesting Vicodin but I feel that this is too many narcotics at this time. I ordered Bentyl for her abdominal discomfort. Her CT scan did not offer up any diagnosis. Please review chest x-ray of I have just ordered it. May also considered CT a pulmonary. May also consider this could be peptic ulcer disease as well. I gave her IV Pepcid. 08/18/20 12:15 patient is 80-year-old female with history of coronary artery disease presented with complaint of chest patient 3 sets of cardiac enzymes are negative and there is no acute changes on her EKG patient does have a history of atrial fibrillation the rate is controlled, we ordered cardiac echo to further evaluate and further recommendation to follow, patient also has history recurrent UTI for last 6 months and has been treated antibiotic patient just finished his last course of antibiotic and developed dysuria frequency urination low abdominal pain, urine essentially clean without any leukourea or nitrite, for her persistent pelvic pain will order pelvic ultrasound for further recommendation, continue present management and monitor will have PT OT evaluate the patient. 08/19 patient with persistent pelvic pain CT scan of the abdominal did not show significant pathology, further evaluate patient had a pelvic ultrasound which also did not show any significant pathology to attribute patient abdominal pain, patient remains clinically stable, her INR is subtherapeutic will increase warfarin to 5 mg daily from 4 mg daily will continue to monitor and further recommendation to (2) Anxiety: Code(s): F41.9 - Anxiety disorder, unspecified Status: Chronic Assessment and Plan: Continue with patient's lorazepam. (3) Depression: Code(s): F32.9 - Major depressive disorder, single episode, unspecified Status: Chronic Assessment and Plan: Continue with patient's home medications. Do not see any medication for depression at this time. (4) Hyperlipidemia: Code(s): E78.5 - Hyperlipidemia, unspecified Status: Chronic Assessment and Plan: Continue with home medications do not see anything for cholesterol (5) Hypothyroid: Code(s): E03.9 - Hypothyroidism, unspecified Status: Chronic Assessment and Plan: Check thyroid level. Patient does not appear to be on any medications (6) HTN (hypertension): Code(s): I10 - Essential (primary) hypertension Status: Acute Assessment and Plan: Continue with losartan. (7) CKD (chronic kidney disease): Code(s): N18.9 - Chronic kidney disease, unspecified Status: Chronic Assessment and Plan: Continue to monitor. Patient is at baseline. (8) CHF (congestive heart failure), NYHA class I: Qualifi
[2020-08-19] MEDS: WARFARIN (*PBKC) 5 MG TABLET PO (16:59)
[2020-08-20] VITALS (9 sets, daily range): BP systolic 122–141; BP diastolic 56–68; PULSE 60–89; RESP 14–16; TEMP 35.5–36.4; O2SAT 95–97
[2020-08-20 06:09] LABS: Hematocrit 35.7 % (37.0-47.0); Hemoglobin 11.7 g/dL (12.0-15.0); Mean Corpuscular HGB Conc 32.8 g/dl (32-36); Mean Corpuscular Hemoglobin 33.4 pg (26-34); Platelet Count Result 196 k/mm3 (150-375); Red Cell Distribution Width 12.5 % (11.5-14.5); White Blood Count 4.4 K/mm3 (4.5-10.0)
[2020-08-20 06:18] LABS: INR 1.8; Prothrombin Time 21.4 Seconds (11.1-14.7)
[2020-08-20 06:19] LABS: Anion Gap 0 mmol/L (8-16); Blood Urea Nitrogen 9 mg/dL (7-17); Carbon Dioxide 35 mmol/L (22-30); Chloride 101 mmol/L (98-107); Estimated CRCL calculation 49 ml/min; Estimated Glomerular Filt Rate > 60; Glucose 100 mg/dL (65-105); Potassium 4.1 mmol/L (3.4-5.0); Sodium 136 mmol/L (137-145)
[2020-08-20] MEDS: LORazepam (*CRX) 1 MG TABLET PO (07:51)
[2020-08-20] MEDS: ASPIRIN 81 MG ENTERIC TABLET PO (08:00)
[2020-08-20] MEDS: LOSARTAN POTASSIUM 50 MG TABLET PO (08:00)
[2020-08-20] MEDS: FAMOTIDINE 20 MG/2 ML VIAL IV PUSH ×2 (08:00→21:42)
--- NOTE | 2020-08-20 10:55 | PM.IMPN ---
Progress Note: A&P Assessment and Plan (1) Chest pain: Code(s): R07.9 - Chest pain, unspecified Status: Acute Assessment and Plan: 08/20/20 10:55 The patient does have a history of having 3 cardiac stents in the past. The patient was complaining of midsternal chest pain. Her cardiac enzymes are negative x2 so far. I did order chest base. Patient could possibly have a pulmonary emboli. However she is not tachypneic or tachycardic. The patient is subtherapeutic on her Coumadin she was 1.6 the patient subcu Lovenox 1 time and increase her Coumadin. Patient has reproducible chest pain. She has seen Dr. alvarado in the past. I did order another echo since she has not had 1 in over a year. The patient stated she heard from her rest bone all the way down to her upper thighs. The patient recently had diarrhea and is complaining of lower abdominal pain. The patient also has a history of having chronic back pain. This could possibly be radiculopathy from her lumbar spine as well. Patient has a pain pump that is nonfunctioning. The patient stated that morphine did not help her pain much. I placed the patient back on her schedule morphine. She was also requesting Vicodin but I feel that this is too many narcotics at this time. I ordered Bentyl for her abdominal discomfort. Her CT scan did not offer up any diagnosis. Please review chest x-ray of I have just ordered it. May also considered CT a pulmonary. May also consider this could be peptic ulcer disease as well. I gave her IV Pepcid. 08/18/20 12:15 patient is 80-year-old female with history of coronary artery disease presented with complaint of chest patient 3 sets of cardiac enzymes are negative and there is no acute changes on her EKG patient does have a history of atrial fibrillation the rate is controlled, we ordered cardiac echo to further evaluate and further recommendation to follow, patient also has history recurrent UTI for last 6 months and has been treated antibiotic patient just finished his last course of antibiotic and developed dysuria frequency urination low abdominal pain, urine essentially clean without any leukourea or nitrite, for her persistent pelvic pain will order pelvic ultrasound for further recommendation, continue present management and monitor will have PT OT evaluate the patient. 08/19 patient with persistent pelvic pain CT scan of the abdominal did not show significant pathology, further evaluate patient had a pelvic ultrasound which also did not show any significant pathology to attribute patient abdominal pain, patient remains clinically stable, her INR is subtherapeutic will increase warfarin to 5 mg daily from 4 mg daily will continue to monitor and further recommendation to follow. 08/20 today patient has no complaint of chest pain or pelvic pain, we increased her Coumadin 5 mg yesterday and today are INR is 1.8, will continue to monitor and bridge with Lovenox, once INR is therapeutic between 2 and 3, will discharge the patient. (2) Anxiety: Code(s): F41.9 - Anxiety disorder, unspecified Status: Chronic Assessment and Plan: Continue with patient's lorazepam. (3) Depression: Code(s): F32.9 - Major depressive disorder, single episode, unspecified Status: Chronic Assessment and Plan: Continue with patient's home medications. Do not see any medication for depression at this time. (4) Hyperlipidemia: Code(s): E78.5 - Hyperlipidemia, unspecified Status: Chronic Assessment and Plan: Continue with home medications do not see anything for cholesterol (5) Hypothyroid: Code(s): E03.9 - Hypothyroidism, unspecified Status: Chronic Assessment and Plan: Check thyroid level. Patient does not appear to be on any medications (6) HTN (hypertension): Code(s): I10 - Essential (primary) hypertension Status: Acute Assessment and Plan: Continue with losarta
[2020-08-20] MEDS: WARFARIN (*PBKC) 5 MG TABLET PO (17:39)
[2020-08-20] MEDS: MORPHINE SULFATE (*CRX) 15 MG TAB IR PO ×2 (17:39→21:44)
[2020-08-20] MEDS: DICYCLOMINE HCL 10 MG CAPSULE 20 MG PO ×2 (17:40→21:44)
[2020-08-21] VITALS (8 sets, daily range): BP systolic 122–147; BP diastolic 56–75; PULSE 59–94; RESP 12–18; TEMP 36.2–36.7; O2SAT 94–96
[2020-08-21 05:46] LABS: Hematocrit 37.7 % (37.0-47.0); Hemoglobin 12.3 g/dL (12.0-15.0); Mean Corpuscular HGB Conc 32.6 g/dl (32-36); Mean Corpuscular Hemoglobin 33.6 pg (26-34); Platelet Count Result 194 k/mm3 (150-375); Red Blood Count 3.66 M/mm3 (4.2-5.4); Red Cell Distribution Width 12.5 % (11.5-14.5); White Blood Count 4.9 K/mm3 (4.5-10.0)
[2020-08-21 05:55] LABS: Anion Gap 1 mmol/L (8-16); Blood Urea Nitrogen 10 mg/dL (7-17); Calcium 8.5 mg/dL (8.4-10.2); Carbon Dioxide 32 mmol/L (22-30); Chloride 103 mmol/L (98-107); Estimated CRCL calculation 49 ml/min; Estimated Glomerular Filt Rate > 60; Glucose 105 mg/dL (65-105); Potassium 3.9 mmol/L (3.4-5.0); Sodium 136 mmol/L (137-145)
[2020-08-21 07:06] LABS: INR 1.7; Prothrombin Time 20.2 Seconds (11.1-14.7)
[2020-08-21] MEDS: LOSARTAN POTASSIUM 50 MG TABLET PO (08:16)
[2020-08-21] MEDS: ASPIRIN 81 MG ENTERIC TABLET PO (08:16)
[2020-08-21] MEDS: FAMOTIDINE 20 MG/2 ML VIAL IV PUSH ×2 (08:16→20:50)
[2020-08-21] MEDS: DICYCLOMINE HCL 10 MG CAPSULE 20 MG PO ×2 (08:17→22:05)
[2020-08-21] MEDS: MORPHINE SULFATE (*CRX) 15 MG TAB IR PO ×2 (08:20→22:06)
[2020-08-21] MEDS: WARFARIN (*PBKC) 5 MG TABLET PO (16:35)
[2020-08-22] VITALS: PULSE 58
[2020-08-22 04:00] VITALS: PULSE 71
[2020-08-22 05:23] VITALS: BP 133/79; PULSE 63; RESP 12; TEMP 36.6; O2SAT 96
[2020-08-22 06:00] LABS: Hematocrit 34.7 % (37.0-47.0); Hemoglobin 11.4 g/dL (12.0-15.0); Mean Corpuscular HGB Conc 32.9 g/dl (32-36); Mean Corpuscular Hemoglobin 33.2 pg (26-34); Mean Corpuscular Volume 101.2 fl (80-100); Mean Platelet Volume 9.8 fl (7.4-10.4); Platelet Count Result 192 k/mm3 (150-375); Red Blood Count 3.43 M/mm3 (4.2-5.4); Red Cell Distribution Width 12.4 % (11.5-14.5); White Blood Count 4.4 K/mm3 (4.5-10.0)
[2020-08-22 06:09] LABS: Anion Gap 3 mmol/L (8-16); Blood Urea Nitrogen 10 mg/dL (7-17); Calcium 8.4 mg/dL (8.4-10.2); Carbon Dioxide 31 mmol/L (22-30); Chloride 103 mmol/L (98-107); Estimated CRCL calculation 55 ml/min; Estimated Glomerular Filt Rate > 60; Glucose 109 mg/dL (65-105); Sodium 137 mmol/L (137-145)
[2020-08-22 06:12] LABS: INR 1.9; Prothrombin Time 22.4 Seconds (11.1-14.7)
[2020-08-22 08:00] VITALS: PULSE 90
[2020-08-22] MEDS: ASPIRIN 81 MG ENTERIC TABLET PO (08:22)
[2020-08-22] MEDS: FAMOTIDINE 20 MG/2 ML VIAL IV PUSH (08:22)
[2020-08-22] MEDS: LORazepam (*CRX) 1 MG TABLET PO (08:22)
[2020-08-22] MEDS: LOSARTAN POTASSIUM 50 MG TABLET PO (08:22)
[2020-08-22] MEDS: ENOXAPARIN 80 MG/0.8 ML SYRINGE SUB-Q (09:11)
--- NOTE | 2020-08-22 09:12 | PM.DS ---
DS: Admitting Diagnosis Admitting Diagnosis Admitting Diagnosis: Chief Complaint: Chest pain DS: Discharge Diagnosis Discharge Diagnosis (1) Chest pain: Code(s): R07.9 - Chest pain, unspecified Status: Acute Assessment and Plan: 08/21/20 11:35 The patient does have a history of having 3 cardiac stents in the past. The patient was complaining of midsternal chest pain. Her cardiac enzymes are negative x2 so far. I did order chest base. Patient could possibly have a pulmonary emboli. However she is not tachypneic or tachycardic. The patient is subtherapeutic on her Coumadin she was 1.6 the patient subcu Lovenox 1 time and increase her Coumadin. Patient has reproducible chest pain. She has seen Dr. alvarado in the past. I did order another echo since she has not had 1 in over a year. The patient stated she heard from her rest bone all the way down to her upper thighs. The patient recently had diarrhea and is complaining of lower abdominal pain. The patient also has a history of having chronic back pain. This could possibly be radiculopathy from her lumbar spine as well. Patient has a pain pump that is nonfunctioning. The patient stated that morphine did not help her pain much. I placed the patient back on her schedule morphine. She was also requesting Vicodin but I feel that this is too many narcotics at this time. I ordered Bentyl for her abdominal discomfort. Her CT scan did not offer up any diagnosis. Please review chest x-ray of I have just ordered it. May also considered CT a pulmonary. May also consider this could be peptic ulcer disease as well. I gave her IV Pepcid. 08/18/20 12:15 patient is 80-year-old female with history of coronary artery disease presented with complaint of chest patient 3 sets of cardiac enzymes are negative and there is no acute changes on her EKG patient does have a history of atrial fibrillation the rate is controlled, we ordered cardiac echo to further evaluate and further recommendation to follow, patient also has history recurrent UTI for last 6 months and has been treated antibiotic patient just finished his last course of antibiotic and developed dysuria frequency urination low abdominal pain, urine essentially clean without any leukourea or nitrite, for her persistent pelvic pain will order pelvic ultrasound for further recommendation, continue present management and monitor will have PT OT evaluate the patient. 08/19 patient with persistent pelvic pain CT scan of the abdominal did not show significant pathology, further evaluate patient had a pelvic ultrasound which also did not show any significant pathology to attribute patient abdominal pain, patient remains clinically stable, her INR is subtherapeutic will increase warfarin to 5 mg daily from 4 mg daily will continue to monitor and further recommendation to follow. 08/20 today patient has no complaint of chest pain or pelvic pain, we increased her Coumadin 5 mg yesterday and today are INR is 1.8, will continue to monitor and bridge with Lovenox, once INR is therapeutic between 2 and 3, will discharge the patient. 08/21 patient has no new complaints, patient Coumadin was increased to 5 mg from 4 mg on 08/19 today her INR is 1.7 compared to yesterday 1.8, will continue to monitor once INR is therapeutic between 2 and 3 will discharge the patient home. (2) Anxiety: Code(s): F41.9 - Anxiety disorder, unspecified Status: Chronic Assessment and Plan: Continue with patient's lorazepam. (3) Depression: Code(s): F32.9 - Major depressive disorder, single episode, unspecified Status: Chronic Assessment and Plan: Continue with patient's home medications. Do not see any medication for depression at this time. (4) Hyperlipidemia: Code(s): E78.5 - Hyperlipidemia, unspecified Status: Chronic Assessment and Plan: Continue with home medications do not see anything for cholesterol (5)
[2020-08-22] MEDS: DICYCLOMINE HCL 10 MG CAPSULE 20 MG PO (11:04)
== END 2020-08-22 12:16 | disposition home or self-care (01) ==
LOC: ANHED 23:10 → ANHIMU 08-18 03:18 → ANH3MED 08-18 16:37
PROVIDERS: Emergency Medicine; Nurse Practitioner; Admitting Provider Family Medicine; Emergency Provider Emergency Medicine; PCP Physician Assistant; Visit Provider Family Medicine
DX: R07.9 Chest pain, unspecified (principal); I13.0 Hypertensive heart and chronic kidney disease with heart failure and stage 1 through stage 4 chronic kidney disease, or unspecified chronic kidney disease; N18.9 Chronic kidney disease, unspecified; I50.32 Chronic diastolic (congestive) heart failure; E78.5 Hyperlipidemia, unspecified; E03.9 Hypothyroidism, unspecified; F41.8 Other specified anxiety disorders; I48.91 Unspecified atrial fibrillation; I25.10 Atherosclerotic heart disease of native coronary artery without angina pectoris; R10.30 Lower abdominal pain, unspecified; Z95.5 Presence of coronary angioplasty implant and graft
CPT/HCPCS: 36415; 71045; 74177; 76856; 80048; 80053; 81001; 83690; 83735; 84439; 84443; 84480; 84484; 85025; 85027; 85610; 93005; 96361; 96372; 96374; 96375; 96376; 99285; A9270; C8929; G0378; J1650; J2270; J2405; J7030; J7120; Q9957; Q9967

== ENCOUNTER 2022-12-02 12:12 | Emergency (ER) | payer MEDICARE, SELFPAY ==
[2022-12-02 12:17] VITALS: BP 155/86; PULSE 93; RESP 20; TEMP 36.2; O2SAT 99
--- NOTE | 2022-12-02 13:18 | ED.GENADULT ---
HPI - General Adult General Chief complaint: Unspecified Stated complaint: can't stop shaking Source: patient Mode of arrival: ambulatory Limitations: no limitations History of Present Illness HPI narrative: Patient presents for evaluation of tremor for the last 3 weeks. She indicates her arms and legs are affected bilaterally. She denies any headache, lateralizing deficits, chest pain, shortness of breath, cough, or respiratory symptoms. She lives at home with her daughter and states that she needed to use a walker yesterday to assist her in ambulating due to her symptoms. She felt unsteady without it. Daughter is with her 24 hrs per day. Pt states her PCP started her on a Parkinson's medication and it was quite effective. Unfortunately, her primary care doctor is no longer accepting her insurance so she is currently attempting to establish care with a different provider. Related Data Home Medications Medication Instructions Recorded Confirmed aspirin 81 mg tablet,delayed 81 mg PO DAILY 02/27/19 08/18/20 release (Adult Aspirin Regimen) morphine 15 mg immediate release 15 mg PO Q4H PRN Pain 08/18/20 08/18/20 tablet ondansetron 8 mg disintegrating 8 mg PO Q8H PRN Nausea And Vomiting 08/18/20 08/18/20 tablet Allergies Allergy/AdvReac Type Severity Reaction Status Date / Time codeine Allergy Severe CHEST PAIN Verified 05/20/20 08:56 Sulfa (Sulfonamide Allergy Severe UPSET Verified 05/20/20 08:56 Antibiotics) STOMACH JAYDEN Inhibitors Allergy Unknown Cough Verified 05/20/20 08:56 ciprofloxacin Allergy Unknown Unknown Verified 05/20/20 08:56 Review of Systems Review of Systems: CONSTITUTIONAL: Denies fever, chills, or sweats. EYES: Denies visual changes, redness, or discharge. ENT: Denies rhinorrhea, congestion, sore throat, or otalgia. CARDIOVASCULAR: Denies chest pain, palpitations, or edema. RESPIRATORY: Denies cough or dyspnea. GASTROINTESTINAL: Denies abdominal pain, nausea, vomiting, or diarrhea. GENITOURINARY: Denies dysuria or hematuria. SKIN: Denies rash or itching. MUSCULOSKELETAL: Denies back pain, joint pain, or myalgia. NEUROLOGIC: Reports tremor to extremities x4. Denies headache, numbness, dizziness, or weakness. PSYCHIATRIC: Denies anxiety or depression. [facility] Past Medical History Medical History (Updated 12/02/22 @ 13:34 by Seymour Almanzar, [employer], ) Afib Intermittent. Rate controlled. Had been on Coumadin. But now on Lovenox systolic Anxiety CHF (congestive heart failure), NYHA class I CKD (chronic kidney disease) Coronary artery disease Depression GERD (gastroesophageal reflux disease) HTN (hypertension) Hyperlipidemia Hypothyroid Kidney stones Surgical History Surgical History (Reviewed 12/02/22 @ 13:24 by Seymour Almanzar, [facility], ) H/O cardiac catheterization 3 stents History of appendectomy History of bilateral tubal ligation History of cholecystectomy History of heart artery stent 3 History of hysterectomy Family History Family History Father Family history of cardiovascular disease CABG Carcinoma of colon Mother Family history of malignant neoplasm Aplastic anemia Other Family history of anemia Family history of arthritis Hypertension Social History Social History (Reviewed 12/02/22 @ 13:24 by Seymour Almanzar, [facility], ) Social History: The patient had 5 children and 1 son is . The patient has her son and grandchildren live with her. The patient is a full code. She is a lifelong nonsmoker. Her [id number] is a durable power litigation attorney for healthcare. The patient is retired from [employer]. Smoking status: Never smoker Second hand tobacco smoke exposure: No Alcohol intake: never Substance use: never Substance use type: does not use Gender identity (if verbalized by the patient): Female Spiritual care concerns: No Agree to blood products: Yes
== END 2022-12-02 13:39 | disposition home or self-care (01) ==
PROVIDERS: Emergency Provider Nurse Practitioner
DX: R25.1 Tremor, unspecified (principal); N39.0 Urinary tract infection, site not specified; I48.91 Unspecified atrial fibrillation; I13.0 Hypertensive heart and chronic kidney disease with heart failure and stage 1 through stage 4 chronic kidney disease, or unspecified chronic kidney disease; N18.9 Chronic kidney disease, unspecified; I50.9 Heart failure, unspecified; I25.10 Atherosclerotic heart disease of native coronary artery without angina pectoris; K21.9 Gastro-esophageal reflux disease without esophagitis; E78.5 Hyperlipidemia, unspecified; E03.9 Hypothyroidism, unspecified; Z95.5 Presence of coronary angioplasty implant and graft
CPT/HCPCS: 81003; 87077; 87086; 87186; 99213; G0463

== ENCOUNTER 2023-09-24 18:10 | Emergency (ER) | payer MEDICARE, SELFPAY ==
[2023-09-24 18:21] VITALS: BP 156/83; PULSE 91; RESP 20; TEMP 36.2; O2SAT 98
--- NOTE | 2023-09-24 18:49 | ED.GENADULT ---
HPI - General Adult General Chief complaint: Skin/Abscess/Foreign Body Stated complaint: Skin Problem History of Present Illness HPI narrative: Patient presents for evaluation of which she believes to be a pruritic rash to her bilateral forearms for the last 2 weeks. She indicates she had similar symptoms back in May and was given prednisone and triamcinolone. Her symptoms completely resolved for about a month and a half. She denies any known precipitating factors. No new lotions, soaps, detergents, topical products. She is not diabetic. No difficulty breathing or swallowing. She has a fib and is anticoagulated with coumadin 4mg daily. She states her last INR was about one month ago. Related Data Home Medications Medication Instructions Recorded Confirmed aspirin 81 mg tablet,delayed 81 mg PO DAILY 02/27/19 08/18/20 release (Adult Aspirin Regimen) Allergies Allergy/AdvReac Type Severity Reaction Status Date / Time codeine Allergy Severe CHEST PAIN Verified 05/20/20 08:56 Sulfa (Sulfonamide Allergy Severe UPSET Verified 05/20/20 08:56 Antibiotics) STOMACH JAYDEN Inhibitors Allergy Unknown Cough Verified 05/20/20 08:56 ciprofloxacin Allergy Unknown Unknown Verified 05/20/20 08:56 Review of Systems Review of Systems: CONSTITUTIONAL: Denies fever, chills, or sweats. EYES: Denies visual changes, redness, or discharge. ENT: Denies rhinorrhea, congestion, sore throat, or otalgia. CARDIOVASCULAR: Denies chest pain, palpitations, or edema. RESPIRATORY: Denies cough or dyspnea. GASTROINTESTINAL: Denies abdominal pain, nausea, vomiting, or diarrhea. GENITOURINARY: Denies dysuria or hematuria. SKIN: Reports itching and redness to the bilateral forearms. MUSCULOSKELETAL: Denies back pain, joint pain, or myalgia. NEUROLOGIC: Denies headache, numbness, dizziness, or weakness. PSYCHIATRIC: Denies anxiety or depression. [facility] Past Medical History Medical History Afib Intermittent. Rate controlled. Had been on Coumadin. But now on Lovenox systolic Anxiety CHF (congestive heart failure), NYHA class I CKD (chronic kidney disease) Coronary artery disease Depression GERD (gastroesophageal reflux disease) HTN (hypertension) Hyperlipidemia Hypothyroid Kidney stones Surgical History Surgical History H/O cardiac catheterization 3 stents History of appendectomy History of bilateral tubal ligation History of cholecystectomy History of heart artery stent 3 History of hysterectomy Family History Family History Father Family history of cardiovascular disease CABG Carcinoma of colon Mother Family history of malignant neoplasm Aplastic anemia Other Family history of anemia Family history of arthritis Hypertension Social History Social History Social History: The patient had 5 children and 1 son is . The patient has her son and grandchildren live with her. The patient is a full code. She is a lifelong nonsmoker. Her [id number] is a durable power trial attorney for healthcare. The patient is retired from [employer]. Smoking status: Never smoker Second hand tobacco smoke exposure: No Alcohol intake: never Substance use: never Substance use type: does not use Gender identity (if verbalized by the patient): Female Spiritual care concerns: No Agree to blood products: Yes Exam Narrative: GENERAL: Well-appearing, well-nourished, and in no acute distress. HEAD: Normocephalic, atraumatic. EYES: PERRLA and EOMI. ENT: Nares clear, no rhinorrhea or epistaxis. Mucous membranes moist. Oropharynx without tonsillar hypertrophy exudate or other lesions. Bilateral TMs pearly pozo nonbulging NECK: Supple. No adenopathy or masses. No c
== END 2023-09-24 18:53 | disposition home or self-care (01) ==
PROVIDERS: Emergency Provider Nurse Practitioner
DX: L30.9 Dermatitis, unspecified (principal); I13.0 Hypertensive heart and chronic kidney disease with heart failure and stage 1 through stage 4 chronic kidney disease, or unspecified chronic kidney disease; N18.9 Chronic kidney disease, unspecified; I50.9 Heart failure, unspecified; I48.91 Unspecified atrial fibrillation; I25.10 Atherosclerotic heart disease of native coronary artery without angina pectoris; K21.9 Gastro-esophageal reflux disease without esophagitis; E78.5 Hyperlipidemia, unspecified; E03.9 Hypothyroidism, unspecified; Z95.5 Presence of coronary angioplasty implant and graft; Z79.82 Long term (current) use of aspirin; Z79.01 Long term (current) use of anticoagulants
CPT/HCPCS: 99213; G0463